=== PATIENT | male | born 1955 | race African-American/Black ===

== ENCOUNTER 2021-08-09 16:43 | Emergency (ER) | payer SELFPAY ==
[2021-08-09 16:49] VITALS: BP 132/81; PULSE 95; TEMP 97.9; BMI 28.8
[2021-08-09] MEDS ORDERED: LIDOCAINE 5% TOPICAL PATCH TP ONE (17:24)
[2021-08-09] MEDS ORDERED: KETOROLAC TROMETHAMINE 30 MG/1 ML VIAL IM ONE (17:24)
[2021-08-09] MEDS ORDERED: CYCLOBENZAPRINE HCL 10 MG TABLET (FP) PO ONE (17:26)
[2021-08-09] MEDS ORDERED: LIDOCAINE 5% TOPICAL PATCH ONE (17:28)
[2021-08-09] MEDS ORDERED: CYCLOBENZAPRINE HCL 10 MG TABLET (FP) ONE (17:28)
[2021-08-09] MEDS ORDERED: KETOROLAC TROMETHAMINE 30 MG/1 ML VIAL ONE (17:29)
[2021-08-09] MEDS ORDERED: LIDOCAINE PATCH REMOVAL MC SCH (22:00)
== END 2021-08-09 20:35 | disposition home or self-care (01) ==
LOC: JERFT 16:43
PROC: 3E0233Z Introduction of Anti-inflammatory into Muscle, Percutaneous Approach (ICD-10-PCS; principal; 2021-08-09)
DX: M25.661 Stiffness of right knee, not elsewhere classified (principal)
CPT/HCPCS: 73562-TC-RT-FY; 93971-TC; 99285-25